=== PATIENT | male | born 1990 | race Caucasian/White ===

== ENCOUNTER 2016-11-08 07:33 | Emergency (ER) | payer OTHER ==
--- NOTE | 2016-11-08 07:36 | PDOC ---
History of Present Illness - General Chief Complaint: Seizure Stated Complaint: SEIZURE Time Seen by Provider: 11/08/16 07:35 - History of Present Illness Initial Comments: 11/08/16 09:16 26 year old male was brought to the ED via EMS for "witnessed seizure". As per EMS, they found the patient on a chair, BP was 110/60mmHg and finger stick glucose was 110. En route had multiple episodes of vomiting with retching. As per patients brother, they were up all night,playing music, patient had no problems last night. But this morning, brother found patient seizing on a chair , noticed shaking of the entire body, no tongue bite or urinary/stool incontinence noticed, patient was able to say " call ambulance I am seizing". On further questioning, patient says " Feels like slow motion, everything delayed , not seeing thing on time, I feel terrible". Patient reports he tried marijuana for the first time yesterday, denies taking any alcohol or drugs. Brother mentions he has a h/o seizure but is not on any medication, last seizure was 14months ago. Cause of seizure is likely due to antidepressant medication as per the brother. 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 Denies chest pain, sob, cough ,palpitation, abdominal pain. On arrival, patient was still vomiting containing food particles. Looked very lethargic. Past Medical History: Dermatomyositis, Depression, Seizure Allergies: Codeine, seasonal Past Hospitalization: Past Surgical Hx: Surgery for club feet Family Hx: Unknown Social Hx: Denies smoking, alcohol or taking illicit drugs Home Meds: Methotrexate once a week Clonazepam 0.5 mg TID Meloxicam Pantoprazole Past History - Past Medical History Allergies/Adverse Reactions: Allergies Allergy/AdvReac Type Severity Reaction Status Date / Time codeine Allergy Verified 11/08/16 07:53 Home Medications: Ambulatory Orders Methotrexate Sodium [Methotrexate] 0 mg PO SUE 11/08/16 Review of Systems - Review of Systems Able to Perform ROS?: Yes Comments:: 11/08/16 09:44 CONSTITUTIONAL: Absent: fever, chills, diaphoresis, generalized weakness, malaise, loss of appetite HEENT: Absent: rhinorrhea, nasal congestion, throat pain, throat swelling, difficulty swallowing, mouth swelling, ear pain, eye pain, visual Changes CARDIOVASCULAR: Absent: chest pain, syncope, palpitations, irregular heart rate, lightheadedness , peripheral edema RESPIRATORY: Absent: cough, shortness of breath, dyspnea with exertion, orthopnea, wheezing, stridor, hemoptysis GASTROINTESTINAL: Present: Nausea, vomiting, abdominal discomfort Absent: abdominal pain, abdominal distension, constipation, melena, hematochezia GENITOURINARY: Absent: dysuria, frequency, urgency, hesitancy, hematuria, flank pain, genital pain MUSCULOSKELETAL: Absent: myalgia, arthralgia, joint swelling SKIN: Absent: rash, itching, pallor HEMATOLOGIC/IMMUNOLOGIC: Absent: easy bleeding, easy bruising, lymphadenopathy, frequent infections ENDOCRINE: Absent: unexplained weight gain, unexplained weight loss, heat intolerance, cold intolerance NEUROLOGIC: Present: Seizure Absent: headache, focal weakness or paresthesias, dizziness, unsteady gait, mental status changes, bladder or bowel incontinence PSYCHIATRIC: Absent: anxiety, depression, suicidal or homicidal ideation, hallucinations. Is the patient limited Occitan proficient: No *Physical Exam - Physical Exam Comments: 11/08/16 09:47 PE: GENERAL: Awake, alert, confused, looks lethargic, in no acute distress HEAD: No signs of trauma EYES: Purplish discoloration over eyelids, mildly edematous, PERRLA, EOMI, sclera anicteric, conjunctiva clear ENT: Auricles normal inspection, hearing grossly normal, nares patent, oropharynx clear without exudates. Moist mucosa NECK: Normal ROM, supple, no lymphadenopathy, JVD, or masses LUNGS: Breath sounds equal, clear to auscultation bilaterally. No wheezes, and no crackles.. HEART: Regular rate and rhythm, normal S1 and S2, no murmurs, rubs or gallops ABDOMEN: Soft, nontender, normoactive bowel sounds. No guarding, no rebound. No masses EXTREMITIES: Normal range of motion, no edema. No clubbing or cyanosis. No cords, erythema, or tenderness NEUROLOGICAL: Normal speech, normal gait SKIN: Warm, Dry, normal turgor, no rashes or lesions noted. ED Treatment Course - LABORATORY CBC & Chemistry Diagram: 11/08/16 09:00 11/08/16 09:00 Medical Decision Making - Medical Decision Making 11/08/16 07:40 Patient seen and examined at bed side. Vitals unremarkable. Patient looks drowsy , is retching, vomitus containing mainly food particles, no blood noticed. No seizure on arrival. Will order CBC, CMP, UA, Urine Toxicology, CT head IV NS @ 100mls/hr IV Zofran 11/08/16 9:30 Patient now looks comfortable, is sleeping. Vitals, wnl. Labs noted, Hypokalemia 3.3 will replete. Urine tox positive for marijuana Corrected calcium 8.2 11/08/16 12:[address] head-Negative for acute pathology, CXR normal. Potassium repleted On the basis of history and physical examination, seizure could have happened due to combination of lack of sleep all night, a lot of caffeine, trying marijuana and has h/o seizure with no medication. Patient now looks comfortable, is eating his lunch, was able to walk, vitals unremarkable. Patient is hemodynamically stable and can be discharged. Advised patient to visit Neurologist as soon as possible for further evaluation. Illness, Investigation and Plan of care explained to the patient. He verbalized understanding. Case seen and discussed with Dr. Dixon. *DC/Admit/Observation/Transfer Diagnosis at time of Disposition: Seizure - Discharge Dispostion Admit: No - Referrals Referrals: STAFF,NOT ON [Primary Care Provider] - - Patient Instructions Printed Discharge Instructions: Seizure Disorder -- Adult Additional Instructions: Your blood work showed your potassium was slightly low, we repleted the potassium. CT head and Chest xray is normal. Please stop smoking marijuana. Avoid taking too much caffeine. Visit your Neurologist with all the reports as soon as possible. Please return to the Emergency Department if you develop any symptoms.
[2016-11-08] MEDS ORDERED: ONDANSETRON 4 MG/2 ML VIAL ONE (07:52)
[2016-11-08 07:59] VITALS: TEMP 97.4; BMI 25.8
[2016-11-08] MEDS ORDERED: SODIUM CHLORIDE 1,000 ML IV SCH (08:00)
[2016-11-08 09:17] LABS: BASOPHIL 0.7 % (0-2.0); MCH 29.6 pg (25.7-33.7); MCHC 33.2 g/dl (32.0-35.9); MEAN CELL VOLUME 89.1 fl (80-96); MEAN PLT VOLUME 7.9 fl (7.5-11.1); NEUTROPHILS 60.1 % (42.8-82.8); PLATELET COUNT 224 K/MM3 (134-434); RDW 14.4 % (11.9-15.9); WHITE BLOOD COUNT 11.2 K/mm3 (4.0-10.0)
--- NOTE | 2016-11-08 09:17 | PDOC ---
Attending Attestation - Resident Resident Name: Farida Cortez - ED Attending Attestation I have performed the following: I have examined & evaluated the patient, The case was reviewed & discussed with the resident, I agree w/resident's findings & plan, Exceptions are as noted - HPI HPI: 11/08/16 09:15 Agree with the resident's HPI as documented in the electronic medical record. - Physicial Exam PE: 11/08/16 09:16 Agree with the resident's physical examination as documented in the electronic medical record. - Medical Decision Making 11/08/16 09:16 26-year-old male with history of dermatomyositis and seizureson no antiepileptic drugs who presents to the emergency department with a witnessed generalized tonic-clonic seizure this morning and multiple episodes of vomiting. Differential diagnosis includes but is not limited to: Breakthrough seizure, electrolyte abnormality, intoxication, dehydration, infection, toxic/ metabolic derangement. Plan: 1. CT head 2. IV fluids for hydration 3. Labs 4. Urine 5. Chest x-ray 6. Observe and reevaluate
[2016-11-08 09:22] LABS: URINE APPEARANCE CLEAR; URINE BILIRUBIN NEGATIVE (NEGATIVE); URINE BLOOD NEGATIVE (NEGATIVE); URINE COLOR LTYELLOW; URINE GLUCOSE (UA) NEGATIVE (NEGATIVE); URINE KETONE NEGATIVE (NEGATIVE); URINE LEUK ESTERASE NEGATIVE (NEGATIVE); URINE NITRITE NEGATIVE (NEGATIVE); URINE PROTEIN NEGATIVE (NEGATIVE); URINE UROBILINOGEN NEGATIVE E.U./dl (0.2-1.0)
[2016-11-08 09:37] LABS: ALBUMIN 3.5 g/dl (3.4-5.0); ANION GAP 11 (8-16); CALCIUM 7.8 mg/dL (8.5-10.1); CO2 27 mmol/L (21-32); CREATININE 0.7 mg/dL (0.7-1.3); GLUCOSE,RANDOM 120 mg/dL (74-106); MAGNESIUM 1.7 mg/dL (1.8-2.4); PHOSPHOROUS 2.9 mg/dL (2.5-4.9); SGOT/AST 18 U/L (15-37); SGPT/ALT 24 U/L (12-78); TOT PROT 6.2 g/dl (6.4-8.2)
[2016-11-08 09:39] LABS: URINE MARIJUANA THC POSITIVE ng/ml (CUTOFF=50)
[2016-11-08 09:51] LABS: ALK PHOS 55 U/L (45-117); BILIRUBIN,TOTAL 0.3 mg/dL (0.2-1.0)
[2016-11-08] MEDS ORDERED: KCL 10 MEQ IVPB 100 ML IVPB SCH (10:15)
[2016-11-08 10:17] LABS: TROPONIN I < 0.02 ng/ml (0.00-0.05)
[2016-11-08] MEDS ORDERED: KCL 10 MEQ IVPB 100 ML IVPB ONE (10:54)
[2016-11-08 14:04] VITALS: BP 110/55; PULSE 66
--- NOTE | 2016-11-08 16:12 | EKG ---
Test Reason : Blood Pressure : / mmHG Vent. Rate : 063 BPM Atrial Rate : 063 BPM P-R Int : 150 ms QRS Dur : 100 ms QT Int : 412 ms P-R-T Axes : 045 070 058 degrees QTc Int : 421 ms NORMAL SINUS RHYTHM WITH SINUS ARRHYTHMIA NORMAL ECG NO PREVIOUS ECGS AVAILABLE Confirmed by DOMENIC HINKLE MD ([id number]) on 11/08/2016 4:12:18 PM Referred By: Confirmed By:DOMENIC HINKLE MD
== END 2016-11-08 14:22 | disposition home or self-care (01) ==
LOC: JER 07:33
PROC: 3E0337Z Introduction of Electrolytic and Water Balance Substance into Peripheral Vein, Percutaneous Approach (ICD-10-PCS; principal; 2016-11-08)
PROC: 3E033GC Introduction of Other Therapeutic Substance into Peripheral Vein, Percutaneous Approach (ICD-10-PCS; 2016-11-08)
DX: G40.909 Epilepsy, unspecified, not intractable, without status epilepticus (principal); R11.2 Nausea with vomiting, unspecified
CPT/HCPCS: 36415; 70450-TC; 71010-TC; 80053; 80307; 81003; 82550; 83690; 83735; 84100; 84484; 85025; 93005; 93010; 99283-25